=== PATIENT | female | born 1940 | race Caucasian/White ===

== ENCOUNTER → 2019-03-11 | Day surgery (SDC) | payer OTHER ==
[~2019-03-11] MED LIST: COZAAR50 MG PO; CYMBALTA60 MG PO; LIPITOR40 MG PO
== END | disposition home or self-care (01) ==
LOC: ADM 03-05 07:15 → CIR.AMB 07:15
DX: M75.121 Complete rotator cuff tear or rupture of right shoulder, not specified as traumatic (principal)